=== PATIENT | male | born 1995 | race Caucasian/White ===

== ENCOUNTER 2021-03-01 17:55 | Emergency (ER) | payer OTHER ==
[~2021-03-01] VITALS: Ht 180.3 cm; Wt 81.7 kg
[2021-03-01 17:56] VITALS: BP 137/71
--- NOTE | 2021-03-01 19:01 | REP ---
INDICATION: pain since lifting weights. COMPARISON: None. TECHNIQUE: Four views FINDINGS: No acute fracture or destructive osseous lesion. IMPRESSION: Negative for acute disease <Electronically signed by Ramez Keith > 03/01/21 [id number]
== END 2021-03-01 21:52 | disposition home or self-care (01) ==
LOC: M ED 17:55
DX: M25.532 Pain in left wrist (principal)